=== PATIENT | female | born 1955 ===

== ENCOUNTER 2017-05-28 08:52 | Day surgery (SDC) | payer MEDICAID ==
[2017-05-28] MEDS ORDERED: Lactated Ringer's 1,000 ML IV ONE (09:15)
[2017-05-28] MEDS ORDERED: Midazolam 2 MG/2 ML VIAL ONE (09:58)
[2017-05-28] MEDS ORDERED: Propofol 10 mg/ml Inj (20 ML) ONE ×2 (09:58→10:00)
[2017-05-28 11:13] VITALS: TEMP 97.6; O2SAT 100
[2017-05-28 11:21] VITALS: BP 119/67; PULSE 66; RESP 17
== END 2017-05-28 11:21 | disposition home or self-care (01) ==
LOC: H.ENDO 08:52
PROVIDERS: ATTEND Internal Medicine Gastroenterology
DX: Z12.11 Encounter for screening for malignant neoplasm of colon (principal); K64.8 Other hemorrhoids; K57.30 Diverticulosis of large intestine without perforation or abscess without bleeding; R10.13 Epigastric pain; E78.5 Hyperlipidemia, unspecified; F32.9 Major depressive disorder, single episode, unspecified; K29.40 Chronic atrophic gastritis without bleeding; K21.9 Gastro-esophageal reflux disease without esophagitis
CPT/HCPCS: 43239; 45378; 88305; 88342; J2250; J2704; J7120